=== PATIENT | female | born 1990 | race Caucasian/White ===

== ENCOUNTER 2018-06-12 20:00 | Emergency (ER) | payer MEDICAID ==
[~2018-06-12] VITALS: Ht 154.9 cm; Wt 59.1 kg
[2018-06-12 20:06] VITALS: BP 123/73
[2018-06-12 20:50] LABS: BASOPHILS # (AUTO) 0.1 K/uL (0.00-0.22); BASOPHILS % (AUTO) 0.5 % (0.0-2.0); EOSINOPHILS # (AUTO) 0.1 K/uL (0-0.4); EOSINOPHILS % (AUTO) 0.7 % (0.0-4.0); HEMATOCRIT 42.4 % (36-48); HEMOGLOBIN 14.4 g/dL (12.0-16.0); LYMPHOCYTES # (AUTO) 2.8 K/uL (2.5-16.5); LYMPHOCYTES % (AUTO) 25.7 % (20.5-51.1); MEAN CORPUSCULAR HEMOGLOBIN 31 pg (27-31); MEAN CORPUSCULAR HGB CONC 34 g/dL (33-37); MEAN CORPUSCULAR VOLUME 92.2 fL (80-94); MONOCYTES # (AUTO) 0.8 K/uL (0.8-1.0); MONOCYTES % (AUTO) 7.6 % (1.7-9.3); NEUTROPHILS % (AUTO) 65.5 % (42.2-75.2); PLATELET COUNT (AUTO) 224 K/uL (140-450); RED CELL DISTRIBUTION WIDTH 12.5 % (11.6-13.7); WHITE BLOOD COUNT (AUTO) 10.7 K/uL (4.8-10.8)
[2018-06-12 20:55] LABS: APPEARANCE,URINE CLEAR (CLEAR); BILIRUBIN,URINE NEGATIVE (NEGATIVE); BLOOD, URINE TRACE-I (NEGATIVE); COLOR,URINE YELLOW (YELLOW); LEUKOCYTE ESTERASE ,URINE TRACE (NEGATIVE); NITRITE, URINE NEGATIVE (NEGATIVE); PH,URINE 6.5 (5.0-9.0); UGLUCOSE NEGATIVE (NEGATIVE)
[2018-06-12 21:23] LABS: RBC,URINE NONE SEEN /HPF (0-5); WBC,URINE 0-5 (RARE) /HPF (0-5)
[2018-06-12 21:24] LABS: URINE AMORPHOUS URATE 1+ /HPF (None Seen)
[2018-06-12 21:53] VITALS: BP 119/70
== END 2018-06-12 21:53 | disposition home or self-care (01) ==
LOC: MED 20:00
DX: O20.0 Threatened abortion (principal); Z3A.01 Less than 8 weeks gestation of pregnancy
CPT/HCPCS: 36415; 76817; 81001; 81025; 84702; 85025; 86900; 86901; 96372; 99284; Q0092; 99283

== ENCOUNTER 2019-06-05 05:17 | Emergency (ER) | payer BC, OTHER ==
[~2019-06-05] VITALS: Ht 152.4 cm; Wt 54.9 kg
[2019-06-05 05:20] VITALS: BP 130/67
--- NOTE | 2019-06-05 05:20 | NUR ---
Johnathon vasquez in ED - 06/05/19 at 0531 by LETITIAJ PT AMBULATED TO BED #12
--- NOTE | 2019-06-05 05:25 | NUR ---
29 Y/O FEMALE BIB MOTHER C/O BACK PAIN RADIATING TO ABDOMEN X2300 YESTERDAY. PT REPORTS THIS IS THE 3X IT HAS HAPPEN SINCE THANKSGIVING. VOMITTED X2 TODAY; PER PATIENT, " I'M NOT SURE IF IT WAS BECAUSE OF THE MOTRIN THAT I VOMITED. I ALSO HAD A HARD TIME BREATHING. I COULDN'T LAY DOWN OR SLEEP; I FEEL LIKE MY RIBS ARE ON FIRE". PT. SELF MEDICATED WITH 600MG MOTRIN, MINIMAL RELIEF. PAIN IS NOW A 5/10 STARTING FROM THE BACK TO THE MIDEPIGASTRIC REGION. PALPATION SLIGHT TENDER TO TOUCH. ABDOMEN SOFT AND ROUND. SCAR NOTED. ACTIVE BOWEL SOUNDS NOTED ON ALL FOUR QUADRANTS. DENIES DIARRHEA. LAST BOWEL MOVEMENT WAS 06/04/19: NORMAL/SOFT. MEDHX- NONE NKDA SURGICAL HX:
--- NOTE | 2019-06-05 05:25 | NUR ---
PT TAKEN TO BED 12
--- NOTE | 2019-06-05 05:35 | NUR ---
Dr. Panchal examining patient.
[2019-06-05] MEDS ORDERED: KETOROLAC 30 MG/ML VIAL IVP ONE (05:40)
[2019-06-05] MEDS ORDERED: NACL 0.9% 500 ML IV ONE (05:40)
[2019-06-05] MEDS ORDERED: ONDANSETRON 4 MG/2 ML VIAL IVP ONE (05:40)
[2019-06-05 05:55] LABS: BASOPHILS % (AUTO) 0.5 % (0.0-2.0); EOSINOPHILS % (AUTO) 0.6 % (0.0-4.0); HEMATOCRIT 38.9 % (36-48); HEMOGLOBIN 13.2 g/dL (12.0-16.0); LYMPHOCYTES # (AUTO) 1.4 K/uL (2.5-16.5); LYMPHOCYTES % (AUTO) 18.8 % (20.5-51.1); MEAN CORPUSCULAR HEMOGLOBIN 31 pg (27-31); MEAN CORPUSCULAR HGB CONC 34 g/dL (33-37); MEAN CORPUSCULAR VOLUME 90.3 fL (80-94); MONOCYTES # (AUTO) 0.6 K/uL (0.8-1.0); NEUTROPHILS # (AUTO) 5.2 K/uL (1.8-7.7); NEUTROPHILS % (AUTO) 72.1 % (42.2-75.2); PLATELET COUNT (AUTO) 207 K/uL (140-450); RED BLOOD CELL COUNT(AUTO) 4.31 MIL/uL (4.20-5.40); RED CELL DISTRIBUTION WIDTH 13.4 % (11.6-13.7); WHITE BLOOD COUNT (AUTO) 7.3 K/uL (4.8-10.8)
[2019-06-05 06:13] LABS: ALBUMIN 3.6 g/dL (3.4-5.0); ANION GAP 12.4 (8-16); CARBON DIOXIDE 26.3 mmol/L (21-32); CREATININE 0.8 mg/dL (0.6-1.3); POTASSIUM 3.7 mmol/L (3.5-5.1)
--- NOTE | 2019-06-05 06:30 | NUR ---
PATIENT AMBULATED TO THE RESTROOM.
--- NOTE | 2019-06-05 06:34 | NUR ---
PATIENT AMBULATED BACK TO THE RESTROOM.
--- NOTE | 2019-06-05 06:50 | NUR ---
Ultrasound at bedside.
--- NOTE | 2019-06-05 07:07 | NUR ---
REPORT GIVEN TO DESTINY SCHUMACHER.
--- NOTE | 2019-06-05 07:33 | NUR ---
PT RESTING IN BED, REPORTS NO PAIN, MOTHER AT BESIDE
[2019-06-05] MEDS ORDERED: NACL 0.9% 1,000 ML IV ONE (07:47)
[2019-06-05 07:49] LABS: PROTHROMBIN TIME 10.5 secs (10.8-13.4)
--- NOTE | 2019-06-05 08:27 | NUR ---
PATIENT TO CT VIA WHEELCHAIR
--- NOTE | 2019-06-05 08:36 | NUR ---
PT BACK FROM CT
[2019-06-05 08:48] LABS: APPEARANCE,URINE CLOUDY (CLEAR); BILIRUBIN,URINE 2+ (NEGATIVE); BLOOD, URINE NEGATIVE (NEGATIVE); COLOR,URINE YELLOW (YELLOW); LEUKOCYTE ESTERASE ,URINE TRACE (NEGATIVE); NITRITE, URINE NEGATIVE (NEGATIVE); PH,URINE 8.5 (5.0-9.0); UGLUCOSE NEGATIVE (NEGATIVE)
[2019-06-05 09:02] LABS: RBC,URINE NONE SEEN /HPF (0-5); WBC,URINE NONE SEEN /HPF (0-5)
--- NOTE | 2019-06-05 10:08 | NUR ---
IV removed, catheter intact and site benign. Applied folded 4x4 gauze and tape to stop bleeding.
--- NOTE | 2019-06-05 10:10 | NUR ---
Patient discharged with v/s stable. Written and verbal after care instructions given and explained. Patient alert, oriented and verbalized understanding of instructions. Ambulatory with steady gait. All questions addressed prior to discharge. ID band removed. Patient advised to follow up with PMD. Rx of BENTYL, PEPCID given. Patient educated on indication of medication including possible reaction and side effects. Opportunity to ask questions provided and answered.
[2019-06-05 10:11] VITALS: BP 135/72
[2019-06-05 10:15] LABS: BARBITURATE, URINE NEG. ng/ml (NEG <=200); BENZODIAZEPINE, URINE NEG. ng/mL (NEG <=200); CANNABINOID, URINE NEG. ng/mL (NEG <=50); COCAINE, URINE NEG. ng/mL (NEG <=300); OPIATE, URINE NEG. ng/mL (NEG <=2000); PHENCYCLIDINE SCREEN,URINE NEG. ng/mL (NEG <=25)
== END 2019-06-05 10:10 | disposition home or self-care (01) ==
LOC: MED 05:17
DX: K80.50 Calculus of bile duct without cholangitis or cholecystitis without obstruction (principal); R10.13 Epigastric pain; R10.12 Left upper quadrant pain; R94.5 Abnormal results of liver function studies
CPT/HCPCS: 36415; 74176; 76705; 80053; 80305; 81001; 81025; 82150; 82977; 83690; 85025; 85610; 96374; 96375; 99284; J1885; J2405; J7030; Q0092; 81002